=== PATIENT | female | born 1985 | race Caucasian/White ===

== ENCOUNTER 2018-05-08 21:00 | Outpatient (CLI) | payer OTHER, MEDICAID, SELFPAY ==
[2018-05-08 22:14] VITALS: BMI 44.0
--- NOTE | 2018-05-09 18:37 | OB.TRI.NOTE ---
History of Present Illness Date of Service: 05/08/18 Was patient seen by the physician?: No Reason For Visit: R/O PIH Date of Service: 05/08/18 Final JIE: 08/19/18 Final JIE Source: US <20 weeks Gestational age: 25 Weeks and 3 Days History of Present Illness: Patient had mild BAUTISTA for a couple of days, improved w/ tylenol, in the back of her head. Had BP taken at a store and at fire dept and was elevated so came in. I spoke w/ her via phone and recommend eval. Allergies No Known Allergies Allergy (Verified 05/08/18 22:12) NST - FHR Rate Baby A Baseline: n/a Impression/Plan 33 YOF high risk multigravida w/ mild BAUTISTA at 24 weeks gestation improved w/ tylenol, normotensive, no other signs/symptoms of preeclampsia. F/u in office with in one week or prn. NSt not done due to gestational age and not indicated, FHTs + by doppler
--- NOTE | 2018-05-09 18:41 | OB.TRI.HP_ITS ---
History of Present Illness Date of Service: 05/08/18 Was patient seen by the physician?: No Reason For Visit: R/O PIH Date of Service: 05/08/18 Final JIE: 08/19/18 Final JIE Source: US <20 weeks Gestational age: 25 Weeks and 3 Days History of Present Illness: Patient had mild BAUTISTA for a couple of days, improved w/ tylenol, in the back of her head. Had BP taken at a store and at fire dept and was elevated so came in. I spoke w/ her via phone and recommend eval. Allergies No Known Allergies Allergy (Verified 05/08/18 22:12) NST - FHR Rate Baby A Baseline: n/a Impression/Plan 33 YOF high risk multigravida w/ mild BAUTISTA at 24 weeks gestation improved w/ tylenol, normotensive, no other signs/symptoms of preeclampsia. F/ u in office with in one week or prn. NSt not done due to gestational age and not indicated, FHTs + by doppler
== END 2018-05-08 22:20 | disposition home or self-care (01) ==
LOC: WPOUT 21:18 → WP 05-10 10:36
PROVIDERS: Family Provider Family Medicine; PCP Family Medicine; Visit Provider Obstetrics & Gynecology
DX: O09.42 Supervision of pregnancy with grand multiparity, second trimester (principal); O99.89 Other specified diseases and conditions complicating pregnancy, childbirth and the puerperium; R51 Headache; Z3A.24 24 weeks gestation of pregnancy
CPT/HCPCS: 59025; 59050; 99218; G0378

== ENCOUNTER 2018-07-04 13:00 | Outpatient (RCR) | payer OTHER, MEDICAID, SELFPAY | END 2018-07-05 23:59 | LOC: NS 13:00 | PROVIDERS: Family Provider Family Medicine; PCP Family Medicine; Visit Provider Obstetrics & Gynecology | DX: O24.410 Gestational diabetes mellitus in pregnancy, diet controlled (principal); Z71.3 Dietary counseling and surveillance | CPT/HCPCS: 97802; G0108 ==

== ENCOUNTER 2018-07-17 09:30 | Outpatient (RCR) | payer OTHER, MEDICAID, SELFPAY | END 2018-07-17 23:59 | LOC: DC 09:30 | PROVIDERS: Family Provider Family Medicine; PCP Family Medicine; Visit Provider Obstetrics & Gynecology | DX: O24.410 Gestational diabetes mellitus in pregnancy, diet controlled (principal); Z71.3 Dietary counseling and surveillance; Z3A.00 Weeks of gestation of pregnancy not specified ==

== ENCOUNTER 2018-07-24 18:22 | Outpatient (CLI) | payer OTHER, MEDICAID, SELFPAY ==
[2018-07-24 18:49] VITALS: BMI 45.8
[2018-07-24 19:04] LABS: Color, Urine Yellow (Yellow); Glucose, Dipstick Normal (Normal); Ketone-Dipstick Negative (Negative); Leukocyte Esterase-Dipstick 25 /ul (Negative); Nitrite-Dipstick Negative (Negative); Occult Blood-Urine Negative /ul (Negative); Protein-Dipstick Negative (Negative); Specific Gravity, Urine 1.015 (1.002-1.030); Urine Bilirubin Dipstick Negative (Negative); Urine Clarity Sl. Cloudy (Clear); Urine Urobilinogen Normal (Normal); Urine pH 6.5 (5.0 - 8.0)
--- NOTE | 2018-07-25 07:50 | OB.TRI.HP_ITS ---
- Problem List (1) Labor, false (Yasmany-العلي), antepartum Status: Acute History of Present Illness Date of Service: 07/24/18 Was patient seen by the physician?: No Reason For Visit: R/O LABOR Date of Service: 07/24/18 Final JIE: 08/27/18 Final JIE Source: US <20 weeks Gestational age: 35 Weeks and 2 Days History of Present Illness: Patient reports painful and strong contractions that started at 12:30pm and progressively got more regular. Contractions were noted in abdomen and back, patient was concerned she may be in PTL and desired evaluation to confirm. Patient denies LOF, VB or Vaginal Discharge. Reports +FM. Allergies No Known Allergies Allergy (Verified 05/08/18 22:12) Review of Systems Constitutional: Denies: Chills, Fever, Weight Change HEENT: Denies: Head Aches, Sinus Congestion, Sinus Drainage Cardiovascular: Denies: Chest Pain, Palpitations Respiratory: Denies: Cough, Shortness of breath at rest, Sputum production Gastrointestinal: Denies: Abdominal Pain, Nausea, Vomiting Genitourinary: Denies: Dysuria Gynecological: Denies: Vaginal bleeding, Vaginal discharge, Vaginal itching Musculoskeletal: Denies: Joint Pain, Joint Tenderness Skin: Denies: Rash, Wounds Neurological: Denies: Numbness, Tingling, Focal weakness Psychiatric: Denies: Anxiety, Depression, Homicidal Ideations, Suicidal Ideations Hematologic/ Lymphatic: Denies: Easy Bruising, Easy Bleeding Unable to obtain accurate/complete ROS d/t: ROS obtained from nursing assessment Physical Exam Vitals: See nursing note for vitals - initial BP = 141/85, repeat BP = 132/72. Otherwsie VSS, Afebrile Estimated gestational size: Appropriate for gestational size Presentation: Cephalic Cervix Dilation (cm): 1 Station: -2 Effacement (%): 30 NST - FHR Rate Baby A Baseline: 140 Variability:: Moderate Accelerations:: 15 x 15 Decelerations:: None NST Reactive:: Yes, Appropriate for gestational age FHR Category:: Category I Uterine Activity:: Uterine irritability noted on tocometer Impression/Plan 33 y/o @ 35+ weeks, Category I FHT, False Labor - BHx Ctx P: 1) Reactive NST 2) No cervical change noted, UA unremarkable, ctx stopped with increase in PO hydration 3) Patient to follow-up with [facility] as directed Bianca LEE
== END 2018-07-24 20:48 | disposition home or self-care (01) ==
LOC: WPOUT 18:30 → WP 18:30
PROVIDERS: Family Provider Family Medicine; PCP Family Medicine; Visit Provider Advanced Practice Midwife
DX: O47.03 False labor before 37 completed weeks of gestation, third trimester (principal); Z3A.35 35 weeks gestation of pregnancy
CPT/HCPCS: 59025; 59050; 81002; 99218; G0378

== ENCOUNTER 2018-08-02 04:55 | Inpatient (IN) | payer OTHER, MEDICAID, SELFPAY ==
[2018-08-02] MEDS: Lactated Ringers 1,000 ML 50 ML IV ×2 (05:30→13:02)
[2018-08-02] MEDS: Betamethasone/Betamethasone 30 MG/5 ML Vial 12 MG IM (05:45)
[2018-08-02 05:51] LABS: Bedside Glucose 89 mg/dL (70-110)
[2018-08-02 05:57] LABS: Hematocrit 39.1 % (37-47); Hemoglobin 13.4 g/dl (12.0-15.0); Mean Corp Hgb Conc 34.3 g/gl (32-36); Mean Corpuscular Hgb 31.5 pg (27.0-32.0); Mean Corpuscular Volume 91.8 fL (81-99); Mean Platelet Vol. 10.4 fl (6.2-12.0); Platelet Count 179 K/mm3 (150-450); RBC Distribution Width CV 13.9 % (11.6-14.6); RBC Distribution Width SD 45.6 fl (35.1-43.9); Red Blood Count 4.26 M/mm3 (4.2-5.4); White Blood Count 7.9 K/mm3 (4.4-11.0)
[2018-08-02 06:05] LABS: Scan Indicated on CBC? Y/N NO
[2018-08-02 06:06] LABS: Protein, Urine (Random) 8.5 mg/dL (<11.9); Protein:Creat Ratio 383 mg/g CRE (0-200)
[2018-08-02 06:08] VITALS: BMI 46.0
[2018-08-02 06:09] LABS: AST(SGOT) 11 U/L (15-37); Alanine Aminotransfer ALT/SGPT 15 U/L (13-56); Creatinine, Serum 0.69 mg/dL (0.55-1.02); EST Glomerular Filtration Rate 104 mL/min (>60); Est Glom Filt Rate - Afr Amer 126 mL/min (>60); Estimated Creatinine Clearance 90.86 ml/min; Uric Acid 7.1 mg/dL (2.6-6.0)
[2018-08-02 06:15] LABS: Partial Thromboplast Time 29.7 Seconds (24.1-36.2)
[2018-08-02 06:55] LABS: Bedside Glucose 80 mg/dL (70-110)
[2018-08-02 06:58] LABS: Group B Strep DNA By PCR Negative (Negative); Internal Control PASS; Probe Check PASS; Specimen Processing Control PASS
[2018-08-02 07:45] LABS: Bedside Glucose 97 mg/dL (70-110)
--- NOTE | 2018-08-02 08:14 | PCM.HP.OB ---
- Problem List (1) premature rupture of membranes (PPROM) with unknown onset of labor Status: Acute History Date of Admission: 08/02/18 Final JIE: 08/27/18 Final JIE Source: US <20 weeks Gestational age: 36 Weeks and 3 Days History of this : This is a 33 year-old, , at 36 weeks gestational age. History of hypothyroidism (not on medication), hx of cHTN (was on HCTZ prior to ), diet controlled gestational diabetes, prior delivery of twins. This has been uncomplicated. PPROM for clear fluid at 4 am. No VB, ctx's. Good FM. Allergies No Known Allergies Allergy (Verified 08/02/18 06:05) Home Medications: Home Medications Vit No.130/Iron/FA [ Tablet] 1 each PO DAILY 08/30/16 Aspirin [Aspirin, Baby] 81 mg PO DAILY 05/08/18 Smoking Status: Former smoker Number of Fetus(es): 1 Heart Tracin/mod evelyn/+accels/no decels TOCO Analysis: Irritability History Past Pregnancies: Past Pregnancies Delivery Date Name GA/Weeks Outcome Route Weight Infant Gender Labor Length Anesthesia Delivery Location Provider FOB 31w5d twins 6w0d SAB 37w4d 6lb2oz Labs: GC/CT neg, Syphilis NR, RI, HepB neg, HIV NR, Rh pos, rapid GBS neg Expected Delivery Method: Spontaneous Vaginal Review of Systems Constitutional: Denies: Fever Gynecological: Reports: - - +PPROM, no ctx, no vb Physical Exam General: Alert, Oriented x3 HEENT: Atraumatic Lungs: - - No increased resp effort Abdomen: Gravid Extremities:: No edema Neurological: Neuro grossly intact Estimated gestational size: Appropriate for gestational size Cervix Dilation (cm): 0.5 - per cell operation supervisor/Plan All Active Problems (Last Updated 08/02/18 @ 08:21 by Bertha Dixon DO) Labor, false (Menard-العلي), antepartum (Acute) premature rupture of membranes (PPROM) with unknown onset of labor (Acute) This is a 33 year-old, , at 36 weeks gestational age who presented to L&D after PPROM for clear fluid at 4 am. S/p 1 dose of BMZ. Discussed with patient we could wait to induce labor to allow her to get 2nd dose of BMZ 24 hrs after 1st dose for lung maturity. Patient wishes to proceed with induction of labor at this time. - PPROM: Will start Pitocin. GBS negative. Category 1 tracing. Epidural prn - cHTN: BP normal. HELLP labs on admission wnl, except elevated p/c ratio. Continue to closely monitor - Diet controlled gestational diabetes: BG on admission wnl
--- NOTE | 2018-08-02 08:20 | HP.PCM_ITS ---
- Problem List (1) premature rupture of membranes (PPROM) with unknown onset of labor Status: Acute History Date of Admission: 08/02/18 Final JIE: 08/27/18 Final JIE Source: US <20 weeks Gestational age: 36 Weeks and 3 Days History of this : This is a 33 year-old, , at 36 weeks gestational age. History of hypothyroidism (not on medication), hx of cHTN (was on HCTZ prior to ), diet controlled gestational diabetes, prior delivery of twins. This has been uncomplicated. PPROM for clear fluid at 4 am. No VB, ctx's. Good FM. Allergies No Known Allergies Allergy (Verified 08/02/18 06:05) Home Medications: Home Medications Vit No.130/Iron/FA [ Tablet] 1 each PO DAILY 08/30/16 Aspirin [Aspirin, Baby] 81 mg PO DAILY 05/08/18 Smoking Status: Former smoker Number of Fetus(es): 1 Heart Tracin/mod evelyn/+accels/no decels TOCO Analysis: Irritability History Past Pregnancies: Past Pregnancies Delivery Date Name GA/Weeks Outcome Route Weight Infant Gender Labor Length Anesthesia Delivery Location Provider FOB 31w5d twins 6w0d SAB 37w4d 6lb2oz Labs: GC/CT neg, Syphilis NR, RI, HepB neg, HIV NR, Rh pos, rapid GBS neg Expected Delivery Method: Spontaneous Vaginal Review of Systems Constitutional: Denies: Fever Gynecological: Reports: - - +PPROM, no ctx, no vb Physical Exam General: Alert, Oriented x3 HEENT: Atraumatic Lungs: - - No increased resp effort Abdomen: Gravid Extremities:: No edema Neurological: Neuro grossly intact Estimated gestational size: Appropriate for gestational size Cervix Dilation (cm): 0.5 - per art educator/Plan All Active Problems (Last Updated 08/02/18 @ 08:21 by Bertha Dixon DO) Labor, false (Hendry-العلي), antepartum (Acute) premature rupture of membranes (PPROM) with unknown onset of labor (Acute) This is a 33 year-old, , at 36 weeks gestational age who presented to L&D after PPROM for clear fluid at 4 am. S/p 1 dose of BMZ. Discussed with patient we could wait to induce labor to allow her to get 2nd dose of BMZ 24 hrs after 1st dose for lung maturity. Patient wishes to proceed with induction of labor at this time. - PPROM: Will start Pitocin. GBS negative. Category 1 tracing. Epidural prn - cHTN: BP normal. HELLP labs on admission wnl, except elevated p/c ratio. Continue to closely monitor - Diet controlled gestational diabetes: BG on admission wnl
[2018-08-02] MEDS: Oxytocin 30 units/NS 500 ml 30 UNITS/500 ML IV.SOLN IV (08:31)
[2018-08-02 12:01] LABS: Bedside Glucose 92 mg/dL (70-110)
--- NOTE | 2018-08-02 12:36 | PN_ITS ---
Progress Note At bedside to check on pt. Cvx now 50/-3, vertex. Category 1 tracing. [place] not picking up ctx's well, pt having ctx's and pressure regularly while at bedside. s/p epidural. Will recheck in [address] internal monitors if unchanged as toco not picking up ctx's well. Pit at 6 mu/min currently.
[2018-08-02] MEDS: Ondansetron 4 MG/2 ML Vial IV (13:06)
[2018-08-02 13:46] LABS: Bedside Glucose 96 mg/dL (70-110)
[2018-08-02] MEDS: Oxytocin 30 units/NS 500 ml 30 UNITS/500 ML IV.SOLN 334 UNITS IV (14:15)
--- NOTE | 2018-08-02 14:36 | PLAC_PTH ---
PATIENT: VINCENT FOREMAN LOC: [facility] U#:[id number] AGE/SX: 33/F ROOM: WP007 RE08/02/[address]: Dr. Bertha Dixon DO : 1985 BED: 1 DIS: 08/04/2018 SPEC #: [id number] RECD: 08/02/18 19:52 STATUS: VAHE REAbeba #: [id number] DAVIDA: 08/02/18 14:[address]: Bertha Dixon DEPT: SURGICAL PATHOLOGY RECD BY: Genaro Pierre ENTERED: 08/05/18 08:25 SP TYPE: PLACENTA OTHR DR: Dr. Cachorro Rodriguez MD Tissues: Placenta, NOS Procedures: Surgery Specimen Level V HEADER OPERATION: Vaginal delivery PRE-OP DIAGNOSIS: PPROM at 36 weeks TISSUE SUBMITTED: Placenta MICROSCOPIC DIAGNOSIS Placenta: Placental disc - third trimester placenta (505 gm). - focal villous congestion and hemorrhage and changes suggestive of chorangiosis. Membranes - no pathologic diagnosis. Umbilical cord - three blood vessels and no pathologic diagnosis. FEMI:aisha 08/07/18 MICROSCOPIC DESCRIPTION Slides are reviewed. GROSS DESCRIPTION SPECIMEN: PLACENTA / CLINICAL INFORMATION: A. Weight: 2.938 kg B. Gestational Age: 36 weeks C. Sex: Male PLACENTAL WEIGHT (POST FIXATION): 505 gm PLACENTAL DIMENSIONS: 15 x 15 x 4 cm PLACENTAL SHAPE: Usual ovoid PLACENTAL WEIGHT FOR GESTATIONAL AGE: Within 10-99th percentile MEMBRANES - Present A. Insertion: Marginal B. Site of rupture from edge: At edge of placental disc C. Color of membrane: Gupta-ashraf D. Abnormalities: None UMBILICAL CORD - Present A. Color: Gupta-ashraf B. Insertion: Paracentral C. Length: 39 cm D. Diameter: Up to 1.2 cm E. Number of vessels: Three F. Abnormalities: None PLACENTAL DISC - Present A. Color of surface: Gupta-ashraf B. surface abnormalities: None C. Maternal cotyledons: Intact with minimal tears D. Attached retro placental clot: No clot E. Cut surface: Dark red and spongy F. Lesions: None G. Separate clot: Absent SECTIONS SUBMITTED: 1. Membrane roll 2. Cord, maternal end 3. Cord, end 4. Placental disc, and maternal surfaces 5. Placental disc, and maternal surfaces 6. Placental disc, and maternal surfaces SJ:aisha 08/06/18 TC:5 CPT: 76045
--- NOTE | 2018-08-02 14:41 | PCM.OB.VAG ---
- Problem List (1) premature rupture of membranes (PPROM) with unknown onset of labor Status: Acute Vaginal Delivery Maternal Presentation: Spontaneous Rupture of Membranes Method of Induction: Pitocin Medical Reason for Induction: Premature Rupture of Membranes Amniotic Membrane Rupture Type: Spontaneous at home Amniotic Fluid Description: Clear Final JIE: 08/27/18 Gestational age: 36 Weeks and 3 Days Date of Procedure: 08/02/18 Pre-Operative Diagnosis: 36 wk gestation, PPROM, cHTN, gestational diabetes Post-Operative Diagnosis: as above Surgery/ Procedure Performed: Spontaneous Vaginal Delivery Type of Anesthesia: Epidural Description of Procedure: Patient progressed quickly to complete. Patient was complete and at +2 station. Patient pushed with about 3 contractions; head, anterior shoulder, and posterior shoulder of infant delivered without force or delay. Viable male infant delivered and placed on mother's abdomen. Cord was clamped and cut after 60 sec delay. Cord blood obtained. Apgars were 9 and 9. Placenta delivered intact with fundal massage. 3 vessel cord. Placenta sent to pathology. Uterus explored x 2 with scant amount of membranes removed after 1st exploration. Fundus firm and bleeding hemostatic. First-degree perineal laceration repaired in usual sterile fashion using 3-0 Vicryl. EBL 300 cc. Presentation: Vertex Placental Delivery Description: Expressed Placenta Disposition: [facility] Cord Vessel Description: 3 Vessels Cord Entanglement: None A gender: Male (1 minute): 9 (5 minute): 9 Episiotomy Description: None Laceration: 1st degree Medications given after delivery: IV Pitocin
[2018-08-02] MEDS: Oxytocin 30 units/NS 500 ml 30 UNITS/500 ML IV.SOLN 167 UNITS IV (14:45)
[2018-08-02 20:10] VITALS: BP 126/71; PULSE 94; RESP 17; TEMP 36.9; O2SAT 94
[2018-08-02 20:25] LABS: Bedside Glucose 95 mg/dL (70-110)
[2018-08-02] MEDS: Acetaminophen 500 MG Tablet 1000 MG PO (20:34)
[2018-08-03 00:28] VITALS: BP 104/56; PULSE 81; RESP 14; TEMP 36.6; O2SAT 94
[2018-08-03 04:30] VITALS: BP 104/67; PULSE 74; RESP 17; TEMP 36.3; O2SAT 94
[2018-08-03 06:10] LABS: Bedside Glucose 94 mg/dL (70-110)
[2018-08-03] MEDS: Acetaminophen 500 MG Tablet 1000 MG PO ×3 (06:16→20:56)
--- NOTE | 2018-08-03 06:24 | PN.OBGYN_ITS ---
Patient Problems: Active and Suspected Problems (Last Updated 08/02/18 @ 08:21 by Bertha Dixon DO) premature rupture of membranes (PPROM) with unknown onset of labor (Acute) Subjective: Patient doing well. No complaints. Denies fevers, cp, sob, leg pain, nausea, vomiting. Tolerating a regular diet. Ambulating and voiding without difficulty. Lochia normal. with some difficulty with latching, no breast complaints. - Physical Exam General: Alert, Oriented x3 Lungs: - - No increased resp effort Abdomen: Soft, Non Tender, - - Fundus firm at U-1 Extremities: No Calf Tenderness Skin: No rashes Neurological: Neuro grossly intact Psych/Mental Status: Normal Affect, Appropriate Vital Signs Temp Pulse Resp BP Pulse Ox 97.8 F 81 14 104/56 L 94 08/03/18 00:28 08/03/18 00:28 08/03/18 00:28 08/03/18 00:28 08/03/18 00:28 Oxygen Delivery Method Room Air Weight: 251 lb 8.759 oz Body Mass Index (BMI) 46.0 Intake and Output for Last 24 Hours 08/01/18 08/02/18 08/03/18 23:59 23:59 23:59 Intake Total 1412 / 1412 Output Total 1350 / 1350 Balance 62 / 62 Laboratory Tests Past 24 Hrs 08/02/18 08/02/18 08/02/18 05:14 05:30 05:30 PT 13.0 INR 1.0 APTT 29.7 Group B Strep DNA Negative Specimen Comment Not Reportable Blood Type O POSITIVE Antibody Screen NEGATIVE POC Glucose 08/03/18 08/02/18 08/02/18 06:04 20:19 13:36 POC Glucose 94 95 96 08/02/18 08/02/18 08/02/18 11:47 07:41 06:46 POC Glucose 92 97 80 Medical Necessity - Tobacco Use Smoking Status: Former smoker Assessment/Plan All Active Problems (Last Updated 08/02/18 @ 08:21 by Bertha Dixon DO) Labor, false (Yasmany-العلي), antepartum (Acute) premature rupture of membranes (PPROM) with unknown onset of labor (Acute) day 1 - Doing well - cHTN: Was in HCTZ prior to . BP's normal since delivery. Will have her return in 1 week for BP check - gestational diabetes: Accuchecks so far in 90's, no indication of pre- gestational diabetes. Will continue accuchecks for 24 hrs. Reviewed with pt glucose tolerance test in 6 weeks - PPBC: Micronor to OCP's - - Dispo: D/c home today. Reviewed to call to schedule appointments in 1 week, and in 4-6 weeks
--- NOTE | 2018-08-03 06:24 | PCM.DCVAG ---
Discharge Diet: No Restrictions Discharge Activity: Return to Normal Activity May resume sexual activity in: 6 weeks Call your doctor if you observe: Fever of 101 or Higher, Using more than one pad per hour, Shortness of breath, Chest pain, Calf discomfort, Uncontrolled pain Additional Instructions: If you experience any of the following, contact your healthcare provider. Bleeding that soaks a pad every hour for 2 hours Fever 100.4 or higher Unrelieved incision or abdominal pain Swelling, redness, discharge or bleeding from your incision or episiotomy site Your incision begins to separate Problems urinating (including inability to urinate or burning while urinating). Visual changes Severe headache Flu-like symptoms Pain or redness in one of both of your breasts Pain, warmth, tenderness or swelling in your legs, especially the calf area Frequent nausea and vomiting Symptoms of depression or anxiety If you experience any of the following, call 911 or go to the nearest Emergency Room. Chest pain Problems breathing Seizure activity Partial or complete paralysis of a body part, slurred speech, weakness or drooping of the face, or a sudden inability to walk or hold your balance Allergies/Adverse Reactions: Allergies No Known Allergies Allergy (Verified 08/02/18 06:05) Medications to take at Discharge Vit No.130/Iron/FA [ Tablet] 1 each PO DAILY 08/30/16 Aspirin [Aspirin, Baby] 81 mg PO DAILY 05/08/18 When: Follow up in 1 week for blood pressure check, and in 4-6 weeks for appointment. Primary Care Physician: Cachorro Rodriguez MD [Primary Care Provider] - Test Results: Test results from this visit will be discussed in further detail at your follow-up appointment, if applicable.
--- NOTE | 2018-08-03 06:25 | DCINST_ITS ---
Discharge Diet: No Restrictions Discharge Activity: Return to Normal Activity May resume sexual activity in: 6 weeks Call your doctor if you observe: Fever of 101 or Higher, Using more than one pad per hour, Shortness of breath, Chest pain, Calf discomfort, Uncontrolled pain Additional Instructions: If you experience any of the following, contact your healthcare provider. * Bleeding that soaks a pad every hour for 2 hours * Fever 100.4 or higher * Unrelieved incision or abdominal pain * Swelling, redness, discharge or bleeding from your incision or episiotomy site * Your incision begins to separate * Problems urinating (including inability to urinate or burning while urinating). * Visual changes * Severe headache * Flu-like symptoms * Pain or redness in one of both of your breasts * Pain, warmth, tenderness or swelling in your legs, especially the calf area * Frequent nausea and vomiting * Symptoms of depression or anxiety If you experience any of the following, call 911 or go to the nearest Emergency Room. * Chest pain * Problems breathing * Seizure activity * Partial or complete paralysis of a body part, slurred speech, weakness or drooping of the face, or a sudden inability to walk or hold your balance Allergies/Adverse Reactions: Allergies No Known Allergies Allergy (Verified 08/02/18 06:05) Medications to take at Discharge Vit No.130/Iron/FA [ Tablet] 1 each PO DAILY 08/30/16 Aspirin [Aspirin, Baby] 81 mg PO DAILY 05/08/18 When: Follow up in 1 week for blood pressure check, and in 4-6 weeks for appointment. Primary Care Physician: Cachorro Rodriguez MD [Primary Care Provider] - Test Results: Test results from this visit will be discussed in further detail at your follow- up appointment, if applicable.
[2018-08-03 10:00] VITALS: BP 116/77; PULSE 81; RESP 16; TEMP 36.4
[2018-08-03] MEDS: Senna/Docusate Sodium 1 Tablet PO (12:55)
[2018-08-03 14:00] VITALS: BP 154/88; PULSE 86; RESP 16; TEMP 36.1
[2018-08-03 20:45] VITALS: BP 135/70; PULSE 85; RESP 16; TEMP 36.5
[2018-08-03] MEDS: Ibuprofen 600 MG Tablet PO (23:00)
[2018-08-04 02:17] VITALS: BP 113/71; PULSE 72; RESP 18; TEMP 36.1; O2SAT 97
[2018-08-04] MEDS: Acetaminophen 500 MG Tablet 1000 MG PO (06:37)
[2018-08-04 07:27] VITALS: BP 131/80; PULSE 77; RESP 16; TEMP 36.4; O2SAT 95
--- NOTE | 2018-08-04 07:44 | PCM.PN.OB ---
Patient Problems: Active and Suspected Problems (Last Updated 08/02/18 @ 08:21 by Bertha Dixon DO) premature rupture of membranes (PPROM) with unknown onset of labor (Acute) Subjective: Patient doing well. No complaints. Jimenez reg diet. Ambulating and voiding without difficulty. Denies fevers, cp, sob, nausea, vomiting, leg pain, BAUTISTA, vision changes, upper abd pain. Baby is in special care nursery, bottle feeding baby currently. - Physical Exam General: Alert, Oriented x3 HEENT: Atraumatic Lungs: - - No increased resp effort Abdomen: Soft, Non Tender, - - FF@U-1 Extremities: No Calf Tenderness Skin: No rashes Neurological: Neuro grossly intact Psych/Mental Status: Normal Affect Vital Signs Temp Pulse Resp BP Pulse Ox 97.5 F L 77 16 131/80 H 95 08/04/18 07:27 08/04/18 07:27 08/04/18 07:27 08/04/18 07:27 08/04/18 07:27 Oxygen Delivery Method Room Air Weight: 251 lb 8.759 oz Body Mass Index (BMI) 46.0 Intake and Output for Last 24 Hours 08/02/18 08/03/18 08/04/18 23:59 23:59 23:59 Intake Total 1412 / 1412 Output Total 1350 / 1350 Balance 62 / 62 Microbiology Past 72 Hours 08/02/18 Unknown Group B Streptococcus Culture - Final Genital vaginal Medical Necessity - Tobacco Use Smoking Status: Former smoker Assessment/Plan All Active Problems (Last Updated 08/02/18 @ 08:21 by Bertha Dixon DO) Labor, false (Yasmany-العلي), antepartum (Acute) premature rupture of membranes (PPROM) with unknown onset of labor (Acute) day 2 s/p - Doing well - Has had several mild range BP's, BP max 154/88, hx of cHTN and on HCTZ prior to . Cannot find prior dose of HCTZ that she was on. Given that at higher doses it can affect breast milk supply, will start Labetalol 100mg BID. No pre-e symptoms. Pt will return in 1 week for BP check - PPBC: Micronor sent to pharmacy - Baby in special care nursey - Dispo: D/c home today
[2018-08-04] MEDS: Ibuprofen 600 MG Tablet PO (07:50)
[2018-08-04] MEDS: Labetalol 100 MG Tablet PO (07:50)
[2018-08-04] MEDS: Senna/Docusate Sodium 1 Tablet PO (07:51)
[2018-08-07 14:37] LABS: Pathology Specimen OB SEE PATHOLOGY REPORT
== END 2018-08-04 08:40 | disposition home or self-care (01) | DRG 774 ==
PROVIDERS: Obstetrics & Gynecology; Admitting Provider Obstetrics & Gynecology; Family Provider Family Medicine; PCP Family Medicine; Referring Provider Obstetrics & Gynecology; Visit Provider Obstetrics & Gynecology
DX: O42.913 Preterm premature rupture of membranes, unspecified as to length of time between rupture and onset of labor, third trimester (principal); O10.92 Unspecified pre-existing hypertension complicating childbirth; Z37.0 Single live birth; Z3A.36 36 weeks gestation of pregnancy; O24.429 Gestational diabetes mellitus in childbirth, unspecified control; Z87.891 Personal history of nicotine dependence; O70.0 First degree perineal laceration during delivery
CPT/HCPCS: 59050; 82565; 82570; 82962; 84156; 84450; 84460; 84550; 85027; 85610; 85730; 86850; 86900; 87081; 87653; 88307; 99218; J7120; G0378; J0702; J2405

== ENCOUNTER → 2019-11-24 07:44 | Outpatient (CLI) | payer MEDICAID, SELFPAY ==
[2019-11-24 08:30] LABS: Glucose GTT- Fasting 98 mg/dL (74-106)
[2019-11-24 08:55] LABS: ALB/GLOB Ratio 0.9 RATIO (0.9-2.4); AST(SGOT) 18 U/L (15-37); Alanine Aminotransfer ALT/SGPT 32 U/L (13-56); Albumin, Serum 3.6 g/dL (3.2-5.0); Alkaline Phosphatase 84 U/L (45-117); Anion Gap 4 (5-15); BUN 14 mg/dL (7-18); BUN/Creat Ratio 19.2 RATIO (10-20); Chloride 104 mmol/L (98-107); Creatinine, Serum 0.73 mg/dL (0.55-1.02); EST Glomerular Filtration Rate 96 mL/min (>60); Est Glom Filt Rate - Afr Amer 116 mL/min (>60); Glucose 97 mg/dL (74-106); Potassium 3.8 mmol/L (3.5-5.1); Protein, Total 7.6 g/dL (6.4-8.2); Sodium Level 138 mmol/L (136-145)
[2019-11-24 09:37] LABS: Glucose GTT- 1 Hour 138 mg/dL (120-170)
[2019-11-24 09:39] LABS: Glucose GTT-30 minutes 158 mg/dL (110-170)
[2019-11-24 10:48] LABS: Glucose GTT- 2 Hour 146 mg/dL (70-120)
== END ==
PROVIDERS: Referring Provider Nurse Practitioner Family; Visit Provider Nurse Practitioner Family
DX: E16.2 Hypoglycemia, unspecified (principal)
CPT/HCPCS: 36415; 80053; 82951; 82952

== ENCOUNTER 2022-09-18 14:15 | Outpatient (CLI) | payer MEDICAID, SELFPAY ==
--- NOTE | 2022-09-18 15:52 | NEURO_ITS ---
NCS and/or EMG Patient Report Ordering Doctor: Benitez Otoole NP DATE OF SERVICE: 09/18/22 Indication: Eight months of numbness, tingling and dietitian weakness in the right hand. Evaluate for entrapment neuropathy. Findings: Nerve conduction studies were performed in the right upper extremity. The right median motor study recording the abductor pollicis brevis showed a normal amplitude, prolonged distal latency and normal conduction velocity. The right ulnar motor study recording the abductor digiti minimi showed a normal amplitude, normal distal latency and normal conduction velocity. No conduction block or focal slowing was present across the elbow. The right median sensory response recording digit two showed a normal amplitude, prolonged latency and markedly reduced conduction velocity. The right ulnar sensory response recording digit five showed a normal amplitude, latency and conduction velocity. The right radial sensory response recording over the extensor snuff box showed a normal amplitude, latency and conduction velocity. Needle EMG of the right upper extremity muscles was normal. No denervation was seen in any muscle. Motor units in the abductor pollicis brevis were large amplitude, long duration with slightly decreased recruitment. All other motor unit morphology, activation and recruitment patterns were normal. Impression: This is an abnormal study. There is electrophysiologic evidence of a mild median neuropathy across the right wrist. These findings are compatible with the clinical diagnosis of carpal tunnel syndrome. In addition, there is no electrophysiologic evidence of cervical radiculopathy, brachial plexopathy or other entrapment neuropathy in the right upper extremity. Elmer Fleming D.O. Multi Select Codes Neurology Neurology Interp Codes: 14364-69 Musc test done w/n test comp (interp) and 45362-98 [facility] cndj tst 5-6 studies (interp)
== END 2022-09-18 23:59 | disposition home or self-care (01) ==
LOC: PSN 14:16
PROVIDERS: Visit Provider Nurse Practitioner Family
DX: R20.2 Paresthesia of skin (principal)
CPT/HCPCS: 95886; 95909

== ENCOUNTER → 2023-01-22 | Outpatient (CLI) | payer MEDICAID, SELFPAY ==
--- NOTE | 2023-01-22 16:20 | MRI_ITS ---
STUDY: MRI BRAIN WITHOUT CONTRAST REASON FOR EXAM: Female, 37 years old. NEW ONSET HEADACHE TECHNIQUE: Standardized multiplanar fat and water weighted pulse sequences were obtained. COMPARISON: None. FINDINGS: There is mild cerebral atrophy with widening of the extra-axial spaces and ventricular dilatation. Normal white matter tracts of the supratentorial brain. There is no evidence for recent intracranial ischemia or other cause of cytotoxic edema on diffusion weighted imaging (DWI). Normal T2* images of the brain without demonstrated susceptibility artifact. There is no demonstrated hemosiderin stain. Normal bilateral basal ganglia. Normal thalami. There is no extra-axial fluid accumulation. Normal flow voids within the major intracranial circulation suggesting patency by spin echo criteria. Normal sella turcica, pituitary gland, infundibular stalk, optic chiasm and hypothalamus. Normal tectal plate and pineal gland. Normal midbrain, edson and medulla. Normal cerebellum. Normal basal cisterns. Normal bilateral temporal bones. Normal bilateral internal auditory canals. No demonstrated orbital abnormality, within the constraints of a routine brain study. There is moderate mucosal thickening of the maxillary sinuses. Normal calvarium and skull base. Normal visualized soft tissue structures. Normal visualized upper cervical spine. MRI/Brain without Contrast IMPRESSION: Involutional changes of the brain, as described above. Electronically Signed: Fei Howard MD at 18:48 EDT ,
== END | disposition home or self-care (01) ==
LOC: MRI 16:17
PROVIDERS: Referring Provider Nurse Practitioner Family; Visit Provider Nurse Practitioner Family
DX: R51.9 Headache, unspecified (principal)
CPT/HCPCS: 70551